=== PATIENT | female | born 1960 | race Caucasian/White ===

== ENCOUNTER 2017-09-19 09:43 | Emergency (ER) | payer OTHER ==
[~2017-09-19] VITALS: Ht 165.1 cm; Wt 99.4 kg
[2017-09-19] MEDS ORDERED: ALBU18HF INH (10:09)
[2017-09-19] MEDS ORDERED: PROP10TA PO (10:09)
[2017-09-19] MEDS ORDERED: MELA3TAB2 PO (10:09)
[2017-09-19] MEDS ORDERED: ZOLP10TA PO (10:09)
[2017-09-19] MEDS ORDERED: ALBUTEROL/IPRATROPIUM 2.5MG/0.5MG, 3 ML NPPB ONE (10:30)
[2017-09-19] MEDS ORDERED: ALBUTEROL/IPRATROPIUM 2.5MG/0.5MG, 3 ML ONE (10:36)
[2017-09-19 11:28] VITALS: BP 145/51
== END 2017-09-19 12:33 | disposition home or self-care (01) ==
LOC: ED 10:29
DX: R06.00 Dyspnea, unspecified (principal); Z87.891 Personal history of nicotine dependence; Z92.21 Personal history of antineoplastic chemotherapy
CPT/HCPCS: 71020; 93005; 94640; 99284; J7620

== ENCOUNTER 2018-01-02 16:37 | Inpatient (IN) | payer OTHER ==
[~2018-01-02] VITALS: Ht 167.6 cm; Wt 93.2 kg
[~2018-01-02 16:37] MED LIST changes: -AMLO1CAP8 PO; -OMNIPAQUE 350 MG/ML, 75ML BOTTLE ONE
[2018-01-02 17:19] LABS: BASOPHILS % (AUTO) 1 % (0-1); EOSINOPHILS # (AUTO) 0.07 x10^3/uL (0-0.4); EOSINOPHILS % (AUTO) 1 % (1-7); LYMPHOCYTES # (AUTO) 2.02 x10^3/uL (1-3.4); LYMPHOCYTES % (AUTO) 25 % (22-44); MD NO; MEAN CORPUSCULAR HEMOGLOBIN 30.6 pg (27.0-34.8); MEAN CORPUSCULAR HGB CONC 33.3 g/dL (32.4-35.8); MEAN CORPUSCULAR VOLUME 91.9 fL (80-100); MEAN PLATELET VOLUME 9.1 fL (7.4-10.4); MONOCYTES # (AUTO) 0.49 x10^3/uL (0.2-0.8); MONOCYTES % (AUTO) 6 % (2-9); NEUTROPHILS # (AUTO) 5.52 x10^3/uL (1.8-6.8); NEUTROPHILS % (AUTO) 67 % (42-75); PLATELET COUNT 248 x10^3/uL (130-400); RED BLOOD COUNT 4.56 x10^6/uL (3.82-5.3)
[2018-01-02 17:32] LABS: ALANINE AMINOTRANSFERASE 58 U/L (12-78); ALBUMIN 3.7 g/dL (3.4-5.0); ANION GAP 5 mmol/L (5-15); CALCIUM 8.9 mg/dL (8.5-10.1); CHLORIDE 107 mmol/L (98-107)
[2018-01-02 17:36] LABS: ALKALINE PHOSPHATASE 124 U/L (45-117); BILIRUBIN,TOTAL 0.3 mg/dL (0.2-1.0); TOTAL PROTEIN 7.9 g/dL (6.4-8.2); TROPONIN I < 0.015 ng/mL (0.000-0.045)
[2018-01-02] MEDS ORDERED: SODIUM CHLORIDE FLUSH 10ML SYR IVF ONE (18:30)
[2018-01-02 18:38] LABS: INTERNATIONAL NORMALIZED RATIO 1.06 (0.93-1.1)
[2018-01-02] MEDS ORDERED: POLYETHYLENE GLYCOL 17 GM PACKET PO PRN (19:30)
[2018-01-02] MEDS ORDERED: ONDANSETRON 2MG/ML, 2ML IVPush PRN (19:30)
[2018-01-02] MEDS ORDERED: BISACODYL 10 MG SUPP PR PRN (19:30)
[2018-01-02] MEDS ORDERED: ACETAMINOPHEN 325 MG TABLET ONE (20:07)
[2018-01-02] MEDS: ACETAMINOPHEN 325 MG TABLET PO PRN (20:10)
[2018-01-02] MEDS ORDERED: AMLO1CAP8 PO (20:50)
[2018-01-02 21:00] VITALS: BP 109/72
[2018-01-02] MEDS ORDERED: PROPRANOLOL 10 MG TABLET PO SCH (21:00)
[2018-01-02 21:03] VITALS: BP 109/72
[2018-01-02] MEDS: ZOLPIDEM 10MG TABLET PO PRN (21:08)
[2018-01-02] MEDS: SODIUM CHLORIDE FLUSH 10ML SYR IVF SCH (21:09)
[2018-01-02] MEDS: MELATONIN 3 MG TABLET PO PRN (22:12)
[2018-01-03 01:59] VITALS: BP 111/70
[2018-01-03 04:37] LABS: BASOPHILS # (AUTO) 0.08 x10^3/uL (0-0.1); BASOPHILS % (AUTO) 1 % (0-1); EOSINOPHILS # (AUTO) 0.09 x10^3/uL (0-0.4); EOSINOPHILS % (AUTO) 1 % (1-7); LYMPHOCYTES # (AUTO) 1.77 x10^3/uL (1-3.4); LYMPHOCYTES % (AUTO) 25 % (22-44); MD NO; MEAN CORPUSCULAR HEMOGLOBIN 29.9 pg (27.0-34.8); MEAN CORPUSCULAR HGB CONC 33.2 g/dL (32.4-35.8); MEAN CORPUSCULAR VOLUME 90.2 fL (80-100); MEAN PLATELET VOLUME 9.3 fL (7.4-10.4); MONOCYTES # (AUTO) 0.52 x10^3/uL (0.2-0.8); MONOCYTES % (AUTO) 8 % (2-9); NEUTROPHILS % (AUTO) 65 % (42-75); PLATELET COUNT 215 x10^3/uL (130-400); RED BLOOD COUNT 4.02 x10^6/uL (3.82-5.3); RED CELL DISTRIBUTION WIDTH 13.9 % (9.6-15.2)
[2018-01-03 05:49] LABS: ALANINE AMINOTRANSFERASE 50 U/L (12-78); ALBUMIN 3.2 g/dL (3.4-5.0); ALKALINE PHOSPHATASE 103 U/L (45-117); ANION GAP 6 mmol/L (5-15); BILIRUBIN,TOTAL 0.6 mg/dL (0.2-1.0); CALCIUM 8.7 mg/dL (8.5-10.1); CHLORIDE 105 mmol/L (98-107); CREATININE 0.62 mg/dL (0.55-1.02); TOTAL PROTEIN 6.5 g/dL (6.4-8.2)
[2018-01-03] MEDS: PROPRANOLOL 10 MG TABLET PO SCH ×2 (07:57→20:36)
[2018-01-03] MEDS: SODIUM CHLORIDE FLUSH 10ML SYR IVF SCH ×2 (07:58→20:36)
[2018-01-03] MEDS: SENNA/DOCUSATE TABLET PO SCH (08:01)
[2018-01-03] MEDS ORDERED: MIDAZOLAM 1 MG/ML, 5ML ONE (08:54)
[2018-01-03] MEDS ORDERED: FLUMAZENIL 0.1 MG/1 ML, 5ML ONE (08:54)
[2018-01-03] MEDS ORDERED: FENTANYL PF 100 MCG/2ML ONE (08:54)
[2018-01-03] MEDS ORDERED: NALOXONE 1 MG/ML, 2ML ONE (08:55)
[2018-01-03 10:45] VITALS: BP 114/52
[2018-01-03] MEDS ORDERED: GADOBUTROL 10 MMOL/10 ML PFS ONE (11:47)
[2018-01-03 12:50] VITALS: BP 124/58
[2018-01-03] MEDS: ACETAMINOPHEN 325 MG TABLET PO PRN (13:13)
[2018-01-03 18:50] VITALS: BP 145/67
[2018-01-03] MEDS: MELATONIN 3 MG TABLET PO PRN (20:39)
[2018-01-03] MEDS: ZOLPIDEM 10MG TABLET PO PRN (20:39)
[2018-01-04 02:10] VITALS: BP 103/62
[2018-01-04] MEDS: SENNA/DOCUSATE TABLET PO SCH (08:13)
[2018-01-04] MEDS: PROPRANOLOL 10 MG TABLET PO SCH ×2 (08:13→20:41)
[2018-01-04] MEDS: SODIUM CHLORIDE FLUSH 10ML SYR IVF SCH ×2 (08:13→20:42)
[2018-01-04 08:26] VITALS: BP 139/83
[2018-01-04] MEDS: LOTREL HOMEMEDPO SCH (10:20)
[2018-01-04] MEDS ORDERED: [UNRECOGNIZED DRUG - REMARK] MC SCH (10:30)
[2018-01-04] MEDS: ENOXAPARIN 100 MG/ML SQ SCH (13:39)
[2018-01-04 14:48] VITALS: BP 116/73
[2018-01-04 20:05] VITALS: BP 145/87
[2018-01-04] MEDS: ZOLPIDEM 10MG TABLET PO PRN (20:41)
[2018-01-04] MEDS: MELATONIN 3 MG TABLET PO PRN (20:41)
[2018-01-05] MEDS: ENOXAPARIN 100 MG/ML SQ SCH ×3 (00:52→23:24)
[2018-01-05 02:45] VITALS: BP 115/74
[2018-01-05 07:30] VITALS: BP 104/65
[2018-01-05] MEDS: LOTREL HOMEMEDPO SCH (08:00)
[2018-01-05] MEDS: PROPRANOLOL 10 MG TABLET PO SCH ×2 (08:29→21:19)
[2018-01-05] MEDS: SODIUM CHLORIDE FLUSH 10ML SYR IVF SCH ×2 (08:29→20:32)
[2018-01-05] MEDS: SENNA/DOCUSATE TABLET PO SCH (08:30)
[2018-01-05 14:14] VITALS: BP 105/66
[2018-01-05 19:38] VITALS: BP 121/73
[2018-01-05] MEDS: ZOLPIDEM 10MG TABLET PO PRN (20:32)
[2018-01-05] MEDS: MELATONIN 3 MG TABLET PO PRN (20:32)
[2018-01-06 01:44] VITALS: BP 104/68
[2018-01-06] MEDS: LOTREL HOMEMEDPO SCH (08:00)
[2018-01-06 08:07] VITALS: BP 123/81
[2018-01-06] MEDS: SENNA/DOCUSATE TABLET PO SCH (09:00)
[2018-01-06] MEDS: ENOXAPARIN 100 MG/ML SQ SCH ×2 (10:47→21:15)
[2018-01-06] MEDS: PROPRANOLOL 10 MG TABLET PO SCH ×2 (10:49→19:57)
[2018-01-06] MEDS: SODIUM CHLORIDE FLUSH 10ML SYR IVF SCH ×2 (10:50→21:11)
[2018-01-06 14:13] VITALS: BP 118/68
[2018-01-06 19:06] VITALS: BP 147/64
[2018-01-06] MEDS: ZOLPIDEM 10MG TABLET PO PRN (21:11)
[2018-01-06] MEDS: MELATONIN 3 MG TABLET PO PRN (21:19)
[2018-01-07 01:17] VITALS: BP 112/52
[2018-01-07 05:05] LABS: CREATININE 0.68 mg/dL (0.55-1.02)
[2018-01-07 07:34] VITALS: BP 133/88
[2018-01-07] MEDS: LOTREL HOMEMEDPO SCH (08:43)
[2018-01-07] MEDS: SODIUM CHLORIDE FLUSH 10ML SYR IVF SCH ×2 (08:43→19:59)
[2018-01-07] MEDS: PROPRANOLOL 10 MG TABLET PO SCH ×2 (08:44→19:58)
[2018-01-07] MEDS: SENNA/DOCUSATE TABLET PO SCH (08:44)
[2018-01-07] MEDS: ENOXAPARIN 100 MG/ML SQ SCH ×2 (10:07→21:06)
[2018-01-07 12:37] VITALS: BP 103/68
[2018-01-07 18:40] VITALS: BP 150/84
[2018-01-07] MEDS: MELATONIN 3 MG TABLET PO PRN (20:32)
[2018-01-07] MEDS: ZOLPIDEM 10MG TABLET PO PRN (20:32)
[2018-01-08 01:24] VITALS: BP 106/71
[2018-01-08 07:42] VITALS: BP 117/74
[2018-01-08] MEDS: SENNA/DOCUSATE TABLET PO SCH (08:12)
[2018-01-08] MEDS: PROPRANOLOL 10 MG TABLET PO SCH (08:13)
[2018-01-08] MEDS: SODIUM CHLORIDE FLUSH 10ML SYR IVF SCH (08:13)
[2018-01-08] MEDS: LOTREL HOMEMEDPO SCH (08:23)
[2018-01-08] MEDS ORDERED: RIVA1TAB PO (09:48)
[2018-01-08] MEDS: ENOXAPARIN 100 MG/ML SQ SCH (10:18)
[2018-01-08] MEDS ORDERED: RIVAROXABAN 10 MG TABLET ONE (10:27)
[2018-01-08] MEDS ORDERED: RIVAROXABAN 15 MG TABLET PO SCH (10:30)
[2018-01-08 10:51] LABS: BASOPHILS # (AUTO) 0.08 x10^3/uL (0-0.1); BASOPHILS % (AUTO) 1 % (0-1); EOSINOPHILS % (AUTO) 2 % (1-7); LYMPHOCYTES # (AUTO) 1.53 x10^3/uL (1-3.4); LYMPHOCYTES % (AUTO) 25 % (22-44); MD NO; MEAN CORPUSCULAR HEMOGLOBIN 30.3 pg (27.0-34.8); MEAN CORPUSCULAR HGB CONC 33.5 g/dL (32.4-35.8); MEAN CORPUSCULAR VOLUME 90.4 fL (80-100); MEAN PLATELET VOLUME 9.7 fL (7.4-10.4); MONOCYTES # (AUTO) 0.49 x10^3/uL (0.2-0.8); MONOCYTES % (AUTO) 8 % (2-9); NEUTROPHILS # (AUTO) 3.91 x10^3/uL (1.8-6.8); NEUTROPHILS % (AUTO) 64 % (42-75); PLATELET COUNT 189 x10^3/uL (130-400); RED BLOOD COUNT 4.46 x10^6/uL (3.82-5.3); RED CELL DISTRIBUTION WIDTH 13.8 % (9.6-15.2)
[2018-01-08] MEDS ORDERED: RIVAROXABAN 15 MG TABLET PO ONE (11:00)
== END 2018-01-08 12:19 | disposition home or self-care (01) | DRG 181 ==
LOC: ED 19:38 → EDIP 19:42 → 3NW 20:52
PROVIDERS: ADMIT Internal Medicine; ATTEND Internal Medicine
PROC: 0BBK3ZX Excision of Right Lung, Percutaneous Approach, Diagnostic (ICD-10-PCS; principal; 2018-01-03)
DX: C34.11 Malignant neoplasm of upper lobe, right bronchus or lung (principal); C79.51 Secondary malignant neoplasm of bone; Z99.81 Dependence on supplemental oxygen; I82.621 Acute embolism and thrombosis of deep veins of right upper extremity; J98.4 Other disorders of lung; E44.1 Mild protein-calorie malnutrition; I82.C11 Acute embolism and thrombosis of right internal jugular vein; F41.9 Anxiety disorder, unspecified; I10 Essential (primary) hypertension; R09.02 Hypoxemia; Z85.118 Personal history of other malignant neoplasm of bronchus and lung; Z92.21 Personal history of antineoplastic chemotherapy; Z87.891 Personal history of nicotine dependence; Z92.3 Personal history of irradiation; Z79.01 Long term (current) use of anticoagulants
CPT/HCPCS: 32405; 36415; 70553; 71045; 77012; 80053; 82565; 83880; 84484; 85025; 85610; 85730; 88305; 88341; 88342; 93005; 99156; 99157; 99285; A9585; C2613; J1650; J2250; J3010; G0461; J2310

== ENCOUNTER → 2018-01-02 | Outpatient (CLI) | payer OTHER ==
[~2018-01-02] MED LIST: ALBU18HF INH; AMLO1CAP8 PO; MELA3TAB2 PO; OMNIPAQUE 350 MG/ML, 75ML BOTTLE ONE; PROP10TA PO; ZOLP10TA PO
== END ==
LOC: RAD 10:06
PROVIDERS: ATTEND Internal Medicine Critical Care Medicine
DX: J98.4 Other disorders of lung (principal); J98.6 Disorders of diaphragm; C34.90 Malignant neoplasm of unspecified part of unspecified bronchus or lung; R53.1 Weakness
CPT/HCPCS: 71260; Q9967

== ENCOUNTER → 2018-01-09 | Outpatient (CLI) | payer OTHER ==
[~2018-01-09] MED LIST changes: +AMLO1CAP8 PO; +RIVA1TAB PO
== END | disposition home or self-care (01) ==
LOC: ROC 01-08 07:19
PROVIDERS: ATTEND Radiology Radiation Oncology
DX: Z08 Encounter for follow-up examination after completed treatment for malignant neoplasm (principal); Z85.118 Personal history of other malignant neoplasm of bronchus and lung
CPT/HCPCS: 77290; 77334; 77470

== ENCOUNTER 2018-01-31 06:21 | Day surgery (SDC) | payer OTHER ==
[~2018-01-31] VITALS: Ht 167.6 cm; Wt 93.5 kg
[2018-01-31 07:11] VITALS: BP 114/78
[2018-01-31] MEDS ORDERED: SODIUM CHLORIDE 0.9% 1,000 ML IV SCH (07:12)
[2018-01-31] MEDS ORDERED: CEFAZOLIN PMX 1GM/50ML 50 ML IV ONE (07:30)
[2018-01-31] MEDS ORDERED: LIDOCAINE-MPF 1%, 5ML ONE ×2 (07:47→09:06)
[2018-01-31] MEDS ORDERED: FENTANYL PF 100 MCG/2ML ONE (08:03)
[2018-01-31] MEDS ORDERED: MIDAZOLAM 1 MG/ML, 5ML ONE (08:03)
[2018-01-31] MEDS ORDERED: NALOXONE 1 MG/ML, 2ML ONE (08:03)
[2018-01-31] MEDS ORDERED: FLUMAZENIL 0.1 MG/1 ML, 5ML ONE (08:03)
== END 2018-01-31 10:40 ==
LOC: OUT 06:21
PROVIDERS: ATTEND Specialist
DX: Z45.2 Encounter for adjustment and management of vascular access device (principal); C34.90 Malignant neoplasm of unspecified part of unspecified bronchus or lung; F41.9 Anxiety disorder, unspecified; I10 Essential (primary) hypertension; Z98.890 Other specified postprocedural states
CPT/HCPCS: 36561; 76937; 77001; 99156; 99157; C1788; C1894; J0690; J1642; J2250; J3010; J7030; J2310

== ENCOUNTER → 2018-04-04 | Outpatient (CLI) | payer OTHER | END | disposition home or self-care (01) | LOC: ROC 07:46 | PROVIDERS: ATTEND Radiology Radiation Oncology | DX: C34.11 Malignant neoplasm of upper lobe, right bronchus or lung (principal) | CPT/HCPCS: 99213; G0463 ==

== ENCOUNTER → 2018-04-05 | Outpatient (CLI) | payer OTHER | LOC: CFH 13:34 | PROVIDERS: ATTEND Specialist | DX: R11.10 Vomiting, unspecified (principal); R06.02 Shortness of breath | CPT/HCPCS: 70551 ==

== ENCOUNTER → 2018-04-15 | Outpatient (CLI) | payer OTHER ==
[~2018-04-15] MED LIST changes: +GADOBUTROL 10 MMOL/10 ML PFS ONE
== END ==
LOC: CFH 08:52
PROVIDERS: ATTEND Radiology Radiation Oncology
DX: C79.51 Secondary malignant neoplasm of bone (principal); C34.11 Malignant neoplasm of upper lobe, right bronchus or lung; I10 Essential (primary) hypertension
CPT/HCPCS: 72157; 72158; A9585

== ENCOUNTER → 2018-06-06 | Outpatient (CLI) | payer OTHER ==
[~2018-06-06] MED LIST changes: -GADOBUTROL 10 MMOL/10 ML PFS ONE
== END | disposition home or self-care (01) ==
LOC: PETCFH 10:37
PROVIDERS: ATTEND Specialist
DX: C79.51 Secondary malignant neoplasm of bone (principal); C34.12 Malignant neoplasm of upper lobe, left bronchus or lung; Z87.891 Personal history of nicotine dependence
CPT/HCPCS: 78306; A9503

== ENCOUNTER 2018-06-14 20:30 | Emergency (ER) | payer OTHER ==
[~2018-06-14] VITALS: Ht 167.6 cm; Wt 87.8 kg
[2018-06-14 20:51] VITALS: BP 133/95
[2018-06-14 22:52] LABS: BASOPHILS # (AUTO) 0.05 x10^3/uL (0-0.1); BASOPHILS % (AUTO) 1 % (0-1); EOSINOPHILS # (AUTO) 0.34 x10^3/uL (0-0.4); EOSINOPHILS % (AUTO) 4 % (1-7); LYMPHOCYTES # (AUTO) 0.68 x10^3/uL (1-3.4); LYMPHOCYTES % (AUTO) 8 % (22-44); MD NO; MEAN CORPUSCULAR HEMOGLOBIN 33.3 pg (27.0-34.8); MEAN CORPUSCULAR HGB CONC 34.4 g/dL (32.4-35.8); MEAN CORPUSCULAR VOLUME 96.6 fL (80-100); MEAN PLATELET VOLUME 7.6 fL (7.4-10.4); MONOCYTES # (AUTO) 0.57 x10^3/uL (0.2-0.8); MONOCYTES % (AUTO) 7 % (2-9); NEUTROPHILS # (AUTO) 6.79 x10^3/uL (1.8-6.8); NEUTROPHILS % (AUTO) 81 % (42-75); PLATELET COUNT 210 x10^3/uL (130-400); RED BLOOD COUNT 3.44 x10^6/uL (3.82-5.3); RED CELL DISTRIBUTION WIDTH 16.2 % (9.6-15.2)
[2018-06-14 23:05] LABS: ALANINE AMINOTRANSFERASE 15 U/L (12-78); ANION GAP 7 mmol/L (5-15); CALCIUM 9.5 mg/dL (8.5-10.1); CHLORIDE 101 mmol/L (98-107); CREATININE 1.18 mg/dL (0.55-1.02)
[2018-06-14 23:07] LABS: ALKALINE PHOSPHATASE 136 U/L (45-117); BILIRUBIN,TOTAL 0.6 mg/dL (0.2-1.0); TOTAL PROTEIN 7.8 g/dL (6.4-8.2)
[2018-06-15 00:36] LABS: TROPONIN I < 0.015 ng/mL (0.000-0.045)
== END 2018-06-15 01:20 | disposition home or self-care (01) ==
LOC: ED 23:02
DX: R06.00 Dyspnea, unspecified (principal); F41.1 Generalized anxiety disorder; I10 Essential (primary) hypertension; J44.9 Chronic obstructive pulmonary disease, unspecified; Z87.891 Personal history of nicotine dependence
CPT/HCPCS: 36415; 71045; 74220; 80053; 83880; 84484; 85025; 93005; 99285

== ENCOUNTER 2018-06-26 18:30 | Inpatient (IN) | payer OTHER ==
[~2018-06-26] VITALS: Ht 167.6 cm; Wt 94.8 kg
[2018-06-26] MEDS ORDERED: ONDANSETRON ODT 4 MG PO ONE (19:00)
[2018-06-26] MEDS ORDERED: HYDROmorphone 1 MG/ML, 1ML IM ONE (19:00)
[2018-06-26] MEDS ORDERED: ONDANSETRON ODT 4 MG ONE (19:06)
[2018-06-26] MEDS ORDERED: HYDROmorphone 2 MG/ML, 1ML ONE ×2 (19:07→21:42)
[2018-06-26 19:22] LABS: BASOPHILS # (AUTO) 0.01 x10^3/uL (0-0.1); BASOPHILS % (AUTO) 0 % (0-1); EOSINOPHILS # (AUTO) 0.16 x10^3/uL (0-0.4); EOSINOPHILS % (AUTO) 2 % (1-7); LYMPHOCYTES # (AUTO) 0.74 x10^3/uL (1-3.4); LYMPHOCYTES % (AUTO) 9 % (22-44); MD NO; MEAN CORPUSCULAR HEMOGLOBIN 32.8 pg (27.0-34.8); MEAN CORPUSCULAR HGB CONC 34.2 g/dL (32.4-35.8); MEAN PLATELET VOLUME 7.6 fL (7.4-10.4); MONOCYTES # (AUTO) 0.67 x10^3/uL (0.2-0.8); MONOCYTES % (AUTO) 8 % (2-9); NEUTROPHILS # (AUTO) 6.44 x10^3/uL (1.8-6.8); NEUTROPHILS % (AUTO) 80 % (42-75); PLATELET COUNT 229 x10^3/uL (130-400); RED BLOOD COUNT 3.61 x10^6/uL (3.82-5.3); RED CELL DISTRIBUTION WIDTH 16.4 % (9.6-15.2)
[2018-06-26 19:28] LABS: ALBUMIN 3.9 g/dL (3.4-5.0); ANION GAP 7 mmol/L (5-15); CALCIUM 9.4 mg/dL (8.5-10.1); CHLORIDE 105 mmol/L (98-107); CREATININE 1.08 mg/dL (0.55-1.02); INTERNATIONAL NORMALIZED RATIO 1.4 (0.93-1.1); PROTHROMBIN TIME 14.5 Seconds (9.6-11.5)
[2018-06-26] MEDS ORDERED: SODIUM CHLORIDE FLUSH 10ML SYR IVF ONE (21:30)
[2018-06-26] MEDS ORDERED: HYDROmorphone 2 MG/ML, 1ML IVPush PRN (21:30)
[2018-06-26] MEDS ORDERED: OPDIVO (21:38)
[2018-06-26 22:31] VITALS: BP 137/79
[2018-06-26] MEDS ORDERED: LEVO75TA5 PO (23:41)
[2018-06-26] MEDS ORDERED: LEVO500T8 PO (23:41)
[2018-06-26] MEDS ORDERED: PRED5TAB19 BC (23:41)
[2018-06-26] MEDS: PROPRANOLOL 10 MG TABLET PO SCH (23:58)
[2018-06-27] MEDS ORDERED: POLYETHYLENE GLYCOL 17 GM PACKET PO PRN
[2018-06-27] MEDS ORDERED: ACETAMINOPHEN 325 MG TABLET PO PRN
[2018-06-27] MEDS ORDERED: BISACODYL 10 MG SUPP PR PRN
[2018-06-27] MEDS ORDERED: MELATONIN 3 MG TABLET PO PRN
[2018-06-27] MEDS ORDERED: ZOLPIDEM 10MG TABLET PO PRN
[2018-06-27] MEDS: SODIUM CHLORIDE 0.9% 1,000 ML IV SCH ×2 (00:07→14:01)
[2018-06-27 02:51] VITALS: BP 118/82
[2018-06-27] MEDS: ALBUTEROL SULFATE 2.5 MG/3 ML NPPB SCH ×3 (03:39→20:20)
[2018-06-27 05:05] LABS: BASOPHILS # (AUTO) 0.02 x10^3/uL (0-0.1); BASOPHILS % (AUTO) 0 % (0-1); EOSINOPHILS # (AUTO) 0.02 x10^3/uL (0-0.4); EOSINOPHILS % (AUTO) 0 % (1-7); LYMPHOCYTES # (AUTO) 0.43 x10^3/uL (1-3.4); LYMPHOCYTES % (AUTO) 5 % (22-44); MD NO; MEAN CORPUSCULAR HGB CONC 34.1 g/dL (32.4-35.8); MEAN CORPUSCULAR VOLUME 96.7 fL (80-100); MEAN PLATELET VOLUME 7.8 fL (7.4-10.4); MONOCYTES # (AUTO) 0.29 x10^3/uL (0.2-0.8); MONOCYTES % (AUTO) 4 % (2-9); NEUTROPHILS # (AUTO) 7.61 x10^3/uL (1.8-6.8); NEUTROPHILS % (AUTO) 91 % (42-75); PLATELET COUNT 196 x10^3/uL (130-400); RED BLOOD COUNT 3.34 x10^6/uL (3.82-5.3); RED CELL DISTRIBUTION WIDTH 16.4 % (9.6-15.2)
[2018-06-27 05:09] LABS: ALANINE AMINOTRANSFERASE 22 U/L (12-78); ALBUMIN 3.6 g/dL (3.4-5.0); ANION GAP 6 mmol/L (5-15); CALCIUM 8.9 mg/dL (8.5-10.1); CHLORIDE 103 mmol/L (98-107); CREATININE 1.02 mg/dL (0.55-1.02)
[2018-06-27 05:11] LABS: ALKALINE PHOSPHATASE 134 U/L (45-117); BILIRUBIN,TOTAL 0.6 mg/dL (0.2-1.0); TOTAL PROTEIN 7.4 g/dL (6.4-8.2)
[2018-06-27] MEDS: LEVOTHYROXINE 75 MCG TABLET PO SCH (05:46)
[2018-06-27] MEDS ORDERED: RIVAROXABAN 20 MG TABLET PO SCH (06:00)
[2018-06-27 08:32] VITALS: BP 103/69
[2018-06-27] MEDS: BENAZEPRIL 10 MG TABLET PO SCH (08:34)
[2018-06-27] MEDS: AMLODIPINE 5 MG TABLET PO SCH (08:34)
[2018-06-27] MEDS: PROPRANOLOL 10 MG TABLET PO SCH ×2 (08:34→21:00)
[2018-06-27] MEDS: ONDANSETRON 2MG/ML, 2ML IVPush PRN ×2 (08:35→15:57)
[2018-06-27] MEDS: RIVAROXABAN 20 MG TABLET PO SCH (08:35)
[2018-06-27] MEDS: SENNA/DOCUSATE TABLET PO SCH (08:37)
[2018-06-27] MEDS: HYDROmorphone 2 MG/ML, 1ML IVPush PRN ×3 (08:53→23:07)
[2018-06-27] MEDS: PROMETHAZINE 25 MG/ML, 1ML IM PRN ×2 (11:19→17:40)
[2018-06-27] MEDS: ALBUTEROL SULFATE 2.5 MG/3 ML NPPB PRN (12:29)
[2018-06-27 13:51] VITALS: BP 115/68
[2018-06-27] MEDS: KETOROLAC 30 MG/1 ML IV PRN ×2 (14:10→21:14)
[2018-06-27 18:41] VITALS: BP 90/51
[2018-06-28] MEDS: ONDANSETRON ODT 4 MG PO PRN ×3 (00:02→17:35)
[2018-06-28] MEDS: SODIUM CHLORIDE 0.9% 1,000 ML IV SCH ×2 (02:10→16:48)
[2018-06-28 02:15] VITALS: BP 104/66
[2018-06-28] MEDS: KETOROLAC 30 MG/1 ML IV PRN ×4 (02:29→20:22)
[2018-06-28] MEDS: RIVAROXABAN 20 MG TABLET PO SCH (06:12)
[2018-06-28] MEDS: LEVOTHYROXINE 75 MCG TABLET PO SCH (06:13)
[2018-06-28] MEDS: HYDROmorphone 2 MG/ML, 1ML IVPush PRN ×4 (06:22→22:38)
[2018-06-28 07:41] VITALS: BP 111/58
[2018-06-28] MEDS: ALBUTEROL SULFATE 2.5 MG/3 ML NPPB SCH ×2 (08:15→18:53)
[2018-06-28] MEDS: BENAZEPRIL 10 MG TABLET PO SCH (08:24)
[2018-06-28] MEDS: SENNA/DOCUSATE TABLET PO SCH (08:24)
[2018-06-28] MEDS: PROPRANOLOL 10 MG TABLET PO SCH ×2 (08:24→21:00)
[2018-06-28] MEDS: AMLODIPINE 5 MG TABLET PO SCH (08:24)
[2018-06-28 14:22] VITALS: BP 131/64
[2018-06-28 20:09] VITALS: BP 109/72
[2018-06-29 01:35] VITALS: BP 97/65
[2018-06-29] MEDS: HYDROmorphone 2 MG/ML, 1ML IVPush PRN ×4 (01:43→22:14)
[2018-06-29] MEDS: ONDANSETRON ODT 4 MG PO PRN ×3 (01:43→15:21)
[2018-06-29] MEDS: RIVAROXABAN 20 MG TABLET PO SCH (05:58)
[2018-06-29] MEDS: KETOROLAC 30 MG/1 ML IV PRN ×3 (05:59→19:34)
[2018-06-29] MEDS: LEVOTHYROXINE 75 MCG TABLET PO SCH (05:59)
[2018-06-29 06:20] LABS: BASOPHILS # (AUTO) 0.05 x10^3/uL (0-0.1); BASOPHILS % (AUTO) 1 % (0-1); EOSINOPHILS # (AUTO) 0.19 x10^3/uL (0-0.4); EOSINOPHILS % (AUTO) 4 % (1-7); LYMPHOCYTES % (AUTO) 8 % (22-44); MD NO; MEAN CORPUSCULAR HEMOGLOBIN 33.6 pg (27.0-34.8); MEAN CORPUSCULAR HGB CONC 34.7 g/dL (32.4-35.8); MEAN PLATELET VOLUME 7.7 fL (7.4-10.4); MONOCYTES # (AUTO) 0.55 x10^3/uL (0.2-0.8); MONOCYTES % (AUTO) 10 % (2-9); NEUTROPHILS # (AUTO) 4.16 x10^3/uL (1.8-6.8); NEUTROPHILS % (AUTO) 78 % (42-75); PLATELET COUNT 166 x10^3/uL (130-400); RED CELL DISTRIBUTION WIDTH 16.6 % (9.6-15.2)
[2018-06-29 06:25] LABS: ANION GAP 9 mmol/L (5-15); CALCIUM 8.6 mg/dL (8.5-10.1); CHLORIDE 108 mmol/L (98-107); CREATININE 0.95 mg/dL (0.55-1.02)
[2018-06-29] MEDS: BENAZEPRIL 10 MG TABLET PO SCH (08:36)
[2018-06-29] MEDS: SODIUM CHLORIDE 0.9% 1,000 ML IV SCH ×2 (08:36→21:59)
[2018-06-29] MEDS: PROPRANOLOL 10 MG TABLET PO SCH ×2 (08:36→22:14)
[2018-06-29] MEDS: AMLODIPINE 5 MG TABLET PO SCH (08:37)
[2018-06-29 09:00] VITALS: BP 111/73
[2018-06-29] MEDS: SENNA/DOCUSATE TABLET PO SCH (09:18)
[2018-06-29] MEDS: ALBUTEROL SULFATE 2.5 MG/3 ML NPPB SCH ×2 (09:30→19:14)
[2018-06-29] MEDS: PROMETHAZINE 25 MG/ML, 1ML IM PRN (12:16)
[2018-06-29 13:24] VITALS: BP 109/67
[2018-06-29 18:53] VITALS: BP 128/81
[2018-06-30 02:40] VITALS: BP_SYST 104; BP_SYST 114; BP_DIAS 76
[2018-06-30] MEDS: KETOROLAC 30 MG/1 ML IV PRN ×3 (03:54→20:19)
[2018-06-30] MEDS: RIVAROXABAN 20 MG TABLET PO SCH (05:39)
[2018-06-30] MEDS: LEVOTHYROXINE 75 MCG TABLET PO SCH (05:39)
[2018-06-30] MEDS: HYDROmorphone 2 MG/ML, 1ML IVPush PRN ×4 (05:40→22:20)
[2018-06-30 07:09] VITALS: BP 113/68
[2018-06-30] MEDS: ALBUTEROL SULFATE 2.5 MG/3 ML NPPB SCH ×2 (09:05→20:45)
[2018-06-30] MEDS: PROPRANOLOL 10 MG TABLET PO SCH ×2 (09:58→20:19)
[2018-06-30] MEDS: AMLODIPINE 5 MG TABLET PO SCH (09:58)
[2018-06-30] MEDS: BENAZEPRIL 10 MG TABLET PO SCH (09:59)
[2018-06-30] MEDS: SENNA/DOCUSATE TABLET PO SCH ×2 (09:59→10:02)
[2018-06-30] MEDS: ACETAMINOPHEN 325 MG TABLET PO SCH ×3 (10:00→21:00)
[2018-06-30] MEDS: SODIUM CHLORIDE 0.9% 1,000 ML IV SCH ×2 (11:29→15:50)
[2018-06-30 15:23] VITALS: BP 126/68
[2018-06-30 15:48] LABS: FREE T4 (FREE THYROXINE) 1.11 ng/dL (0.76-1.46); THYROID STIMULATING HORMONE 58.3 mIU/L (0.358-3.740)
[2018-06-30] MEDS: ONDANSETRON ODT 4 MG PO PRN (17:50)
[2018-06-30 20:08] VITALS: BP 123/64
[2018-07-01] MEDS: HYDROmorphone 2 MG/ML, 1ML IVPush PRN ×3 (02:29→18:06)
[2018-07-01 02:31] VITALS: BP 108/69
[2018-07-01] MEDS: ONDANSETRON ODT 4 MG PO PRN ×3 (02:36→18:15)
[2018-07-01] MEDS: ACETAMINOPHEN 325 MG TABLET PO SCH ×4 (03:00→22:16)
[2018-07-01] MEDS: ALBUTEROL SULFATE 2.5 MG/3 ML NPPB PRN (05:13)
[2018-07-01] MEDS: LEVOTHYROXINE 75 MCG TABLET PO SCH (05:26)
[2018-07-01] MEDS: KETOROLAC 30 MG/1 ML IV PRN ×3 (05:44→22:23)
[2018-07-01 05:52] LABS: BASOPHILS # (AUTO) 0.07 x10^3/uL (0-0.1); BASOPHILS % (AUTO) 1 % (0-1); EOSINOPHILS # (AUTO) 0.27 x10^3/uL (0-0.4); EOSINOPHILS % (AUTO) 4 % (1-7); LYMPHOCYTES # (AUTO) 0.48 x10^3/uL (1-3.4); LYMPHOCYTES % (AUTO) 7 % (22-44); MD NO; MEAN CORPUSCULAR HEMOGLOBIN 33.5 pg (27.0-34.8); MEAN CORPUSCULAR HGB CONC 34.5 g/dL (32.4-35.8); MEAN CORPUSCULAR VOLUME 97.1 fL (80-100); MEAN PLATELET VOLUME 7.5 fL (7.4-10.4); MONOCYTES # (AUTO) 0.52 x10^3/uL (0.2-0.8); MONOCYTES % (AUTO) 7 % (2-9); NEUTROPHILS # (AUTO) 5.81 x10^3/uL (1.8-6.8); NEUTROPHILS % (AUTO) 81 % (42-75); PLATELET COUNT 168 x10^3/uL (130-400); RED BLOOD COUNT 2.69 x10^6/uL (3.82-5.3); RED CELL DISTRIBUTION WIDTH 16.8 % (9.6-15.2)
[2018-07-01] MEDS ORDERED: ALENDRONATE 10 MG TABLET PO SCH (06:30)
[2018-07-01 06:33] LABS: FOLATE LEVEL 9.4 ng/mL (3.1-17.5)
[2018-07-01] MEDS: PROMETHAZINE 25 MG/ML, 1ML IM PRN (07:55)
[2018-07-01 08:07] VITALS: BP 119/69
[2018-07-01] MEDS: ALBUTEROL SULFATE 2.5 MG/3 ML NPPB SCH ×2 (09:00→18:50)
[2018-07-01] MEDS: SODIUM CHLORIDE 0.9% 1,000 ML IV SCH (09:49)
[2018-07-01] MEDS: BENAZEPRIL 10 MG TABLET PO SCH (10:29)
[2018-07-01] MEDS: PROPRANOLOL 10 MG TABLET PO SCH ×2 (10:29→20:10)
[2018-07-01] MEDS: RIVAROXABAN 20 MG TABLET PO SCH (10:30)
[2018-07-01] MEDS: AMLODIPINE 5 MG TABLET PO SCH (10:31)
[2018-07-01 13:52] VITALS: BP 105/65
[2018-07-01 21:00] VITALS: BP 104/62
[2018-07-02] MEDS: HYDROmorphone 2 MG/ML, 1ML IVPush PRN ×4 (00:02→18:31)
[2018-07-02] MEDS: ONDANSETRON ODT 4 MG PO PRN (00:07)
[2018-07-02] MEDS: SODIUM CHLORIDE 0.9% 1,000 ML IV SCH ×2 (00:07→16:04)
[2018-07-02 01:53] VITALS: BP 100/64
[2018-07-02] MEDS: LEVOTHYROXINE 75 MCG TABLET PO SCH (04:43)
[2018-07-02] MEDS: ACETAMINOPHEN 325 MG TABLET PO SCH ×4 (04:43→22:00)
[2018-07-02] MEDS: ONDANSETRON 2MG/ML, 2ML IVPush PRN ×2 (05:10→12:15)
[2018-07-02 07:12] VITALS: BP 117/51
[2018-07-02] MEDS: ALBUTEROL SULFATE 2.5 MG/3 ML NPPB SCH ×2 (07:15→19:22)
[2018-07-02] MEDS: AMLODIPINE 5 MG TABLET PO SCH (09:55)
[2018-07-02] MEDS: PROPRANOLOL 10 MG TABLET PO SCH ×2 (09:56→19:40)
[2018-07-02] MEDS: RIVAROXABAN 20 MG TABLET PO SCH (09:56)
[2018-07-02] MEDS: BENAZEPRIL 10 MG TABLET PO SCH (09:56)
[2018-07-02 14:00] VITALS: BP 117/51
[2018-07-02] MEDS: PROMETHAZINE 25 MG/ML, 1ML IM PRN (19:39)
[2018-07-02 21:27] VITALS: BP 121/68
[2018-07-03] MEDS: HYDROmorphone 2 MG/ML, 1ML IVPush PRN ×4 (00:26→18:14)
[2018-07-03 01:28] VITALS: BP 130/73
[2018-07-03] MEDS: ACETAMINOPHEN 325 MG TABLET PO SCH ×4 (03:52→20:20)
[2018-07-03] MEDS: LEVOTHYROXINE 75 MCG TABLET PO SCH (06:11)
[2018-07-03 07:28] VITALS: BP 120/72
[2018-07-03] MEDS: ALBUTEROL SULFATE 2.5 MG/3 ML NPPB SCH ×2 (07:45→20:26)
[2018-07-03] MEDS: AMLODIPINE 5 MG TABLET PO SCH (08:26)
[2018-07-03] MEDS: BENAZEPRIL 10 MG TABLET PO SCH (08:26)
[2018-07-03] MEDS: PROPRANOLOL 10 MG TABLET PO SCH ×2 (08:26→20:20)
[2018-07-03] MEDS: RIVAROXABAN 20 MG TABLET PO SCH (08:26)
[2018-07-03] MEDS: METOCLOPRAMIDE 10MG TABLET PO SCH ×4 (08:46→20:22)
[2018-07-03 13:29] VITALS: BP 124/83
[2018-07-03] MEDS: ALBUTEROL SULFATE 2.5 MG/3 ML NPPB PRN (16:25)
[2018-07-03] MEDS: ONDANSETRON 2MG/ML, 2ML IVPush PRN (20:20)
[2018-07-03] MEDS: SODIUM CHLORIDE 0.9% 1,000 ML IV SCH (20:23)
[2018-07-03 20:27] VITALS: BP 129/76
[2018-07-04] MEDS: HYDROmorphone 2 MG/ML, 1ML IVPush PRN ×2 (00:05→05:48)
[2018-07-04 02:47] VITALS: BP 131/78
[2018-07-04] MEDS: ONDANSETRON 2MG/ML, 2ML IVPush PRN ×2 (04:08→12:33)
[2018-07-04] MEDS: ACETAMINOPHEN 325 MG TABLET PO SCH ×2 (04:08→10:00)
[2018-07-04] MEDS: LEVOTHYROXINE 75 MCG TABLET PO SCH (05:48)
[2018-07-04] MEDS: BENAZEPRIL 10 MG TABLET PO SCH (07:26)
[2018-07-04] MEDS: PROPRANOLOL 10 MG TABLET PO SCH (07:26)
[2018-07-04] MEDS: RIVAROXABAN 20 MG TABLET PO SCH (07:26)
[2018-07-04] MEDS: AMLODIPINE 5 MG TABLET PO SCH (07:26)
[2018-07-04] MEDS: METOCLOPRAMIDE 10MG TABLET PO SCH ×2 (07:27→11:40)
[2018-07-04 07:45] VITALS: BP 125/47
[2018-07-04] MEDS: ALBUTEROL SULFATE 2.5 MG/3 ML NPPB SCH (09:26)
[2018-07-04] MEDS ORDERED: METO10TA2 PO (09:44)
[2018-07-04] MEDS ORDERED: ONDA4TAB13 PO (09:44)
[2018-07-04] MEDS ORDERED: ACET325T14 PO (09:44)
[2018-07-04] MEDS ORDERED: BISA10SU65 PR (09:44)
[2018-07-04] MEDS ORDERED: OXYC5SOL8 PO (09:48)
[2018-07-04] MEDS ORDERED: OXYcodone 5 MG/5 ML ORAL.SOL UDC PO PRN (10:00)
== END 2018-07-04 13:42 | disposition home or self-care (01) | DRG 543 ==
LOC: ED 19:48 → 3NW 21:42 → 3NE 06-28 05:52 → 3NW 06-28 05:53
PROVIDERS: ADMIT Family Medicine; ATTEND Family Medicine
DX: C79.51 Secondary malignant neoplasm of bone (principal); C34.90 Malignant neoplasm of unspecified part of unspecified bronchus or lung; D68.69 Other thrombophilia; E87.1 Hypo-osmolality and hyponatremia; I82.C11 Acute embolism and thrombosis of right internal jugular vein; D63.8 Anemia in other chronic diseases classified elsewhere; E06.3 Autoimmune thyroiditis; E66.9 Obesity, unspecified; Z68.33 Body mass index [BMI] 33.0-33.9, adult; F41.1 Generalized anxiety disorder; G89.3 Neoplasm related pain (acute) (chronic); I10 Essential (primary) hypertension; J44.9 Chronic obstructive pulmonary disease, unspecified; T45.1X5A Adverse effect of antineoplastic and immunosuppressive drugs, initial encounter; Y92.89 Other specified places as the place of occurrence of the external cause; Z51.5 Encounter for palliative care; Z66 Do not resuscitate; Z79.01 Long term (current) use of anticoagulants; Z80.1 Family history of malignant neoplasm of trachea, bronchus and lung; Z82.49 Family history of ischemic heart disease and other diseases of the circulatory system; Z87.891 Personal history of nicotine dependence; Z92.3 Personal history of irradiation; Z71.3 Dietary counseling and surveillance; Z79.899 Other long term (current) drug therapy
CPT/HCPCS: 36415; 72190; 73552; 99285; J7613; 76536; 77295; 77300; 77334; 77336; 77412; 77417; 80048; 80053; 82040; 82607; 82746; 83540; 83550; 83735; 84439; 84443; 84481; 85025; 85610; 85730; 94640; 96372; 96374; G0378; J1170; J1885; J2405; J2550; Q0162; J7030

== ENCOUNTER → 2018-06-27 | Outpatient (CLI) | payer OTHER ==
[~2018-06-27] MED LIST changes: +ACET325T14 PO; +BISA10SU65 PR; +LEVO500T8 PO; +LEVO75TA5 PO; +METO10TA2 PO; +ONDA4TAB13 PO; +OPDIVO; +OXYC5SOL8 PO; +PRED5TAB19 BC
== END | disposition home or self-care (01) ==
LOC: ROC 10:10
PROVIDERS: ATTEND Radiology Radiation Oncology
DX: Z02.9 Encounter for administrative examinations, unspecified (principal)

== ENCOUNTER → 2018-07-05 | Outpatient (CLI) | payer OTHER | END | disposition home or self-care (01) | LOC: RAD 14:43 | PROVIDERS: ATTEND Specialist | DX: I82.C11 Acute embolism and thrombosis of right internal jugular vein (principal); C34.12 Malignant neoplasm of upper lobe, left bronchus or lung; Z87.891 Personal history of nicotine dependence ==

== ENCOUNTER 2018-07-17 09:05 | Inpatient (IN) | payer OTHER ==
[~2018-07-17] VITALS: Ht 167.6 cm; Wt 87.0 kg
[2018-07-17] MEDS ORDERED: RIVA20TA PO (09:42)
[2018-07-17] MEDS ORDERED: OXYC5TAB3 PO (09:43)
[2018-07-17] MEDS ORDERED: NIVO240V IV (09:46)
[2018-07-17] MEDS ORDERED: SODIUM CHLORIDE FLUSH 10ML SYR IVF ONE (10:00)
[2018-07-17] MEDS ORDERED: SODIUM CHLORIDE 0.9% 1,000ML IVBOLUS ONE (10:00)
[2018-07-17] MEDS ORDERED: METOCLOPRAMIDE 5 MG/ML, 2ML IVPush ONE (10:00)
[2018-07-17] MEDS ORDERED: METOCLOPRAMIDE 5 MG/ML, 2ML ONE (10:05)
[2018-07-17] MEDS ORDERED: MORPHINE SULFATE 4 MG/ML, 1ML ONE ×2 (10:06→13:21)
[2018-07-17] MEDS: MORPHINE SULFATE 4 MG/ML, 1ML IVPush PRN ×4 (10:16→23:38)
[2018-07-17 10:23] LABS: BASOPHILS # (AUTO) 0.03 x10^3/uL (0-0.1); BASOPHILS % (AUTO) 1 % (0-1); EOSINOPHILS # (AUTO) 0.05 x10^3/uL (0-0.4); EOSINOPHILS % (AUTO) 1 % (1-7); LYMPHOCYTES # (AUTO) 0.42 x10^3/uL (1-3.4); LYMPHOCYTES % (AUTO) 6 % (22-44); MD NO; MEAN CORPUSCULAR HEMOGLOBIN 32.7 pg (27.0-34.8); MEAN CORPUSCULAR HGB CONC 33.7 g/dL (32.4-35.8); MEAN CORPUSCULAR VOLUME 97.1 fL (80-100); MEAN PLATELET VOLUME 7.6 fL (7.4-10.4); MONOCYTES # (AUTO) 0.52 x10^3/uL (0.2-0.8); MONOCYTES % (AUTO) 8 % (2-9); NEUTROPHILS # (AUTO) 5.91 x10^3/uL (1.8-6.8); NEUTROPHILS % (AUTO) 85 % (42-75); PLATELET COUNT 236 x10^3/uL (130-400); RED BLOOD COUNT 3.28 x10^6/uL (3.82-5.3); RED CELL DISTRIBUTION WIDTH 17.9 % (9.6-15.2)
[2018-07-17 10:36] LABS: ALANINE AMINOTRANSFERASE 17 U/L (12-78); ALBUMIN 3.7 g/dL (3.4-5.0); ANION GAP 13 mmol/L (5-15); CALCIUM 9.1 mg/dL (8.5-10.1); CHLORIDE 99 mmol/L (98-107)
[2018-07-17 10:39] LABS: ALKALINE PHOSPHATASE 162 U/L (45-117); BILIRUBIN,TOTAL 1.2 mg/dL (0.2-1.0); CREATININE 0.85 mg/dL (0.55-1.02); TOTAL PROTEIN 7.7 g/dL (6.4-8.2)
[2018-07-17 11:49] LABS: MICROSCOPIC INDICATED
[2018-07-17 11:57] LABS: CULTURE INDICATED? NO
[2018-07-17 13:56] VITALS: BP 149/83
[2018-07-17] MEDS ORDERED: LORazepam 2 MG/ML, 1ML IVPush PRN (14:30)
[2018-07-17] MEDS ORDERED: ENALAPRILAT 1.25 MG/ML, 2ML IVPush PRN (14:30)
[2018-07-17] MEDS ORDERED: LORAZEPAM MC SCH (15:00)
[2018-07-17] MEDS ORDERED: ENOXAPARIN 40 MG/0.4 ML SQ SCH (15:00)
[2018-07-17 15:19] LABS: % IRON SATURATION 23 % (20-55); IRON LEVEL 58 mcg/dL (50-170); TOTAL IRON BINDING CAPACITY 248 mcg/dL (250-450)
[2018-07-17] MEDS: ENOXAPARIN 80 MG/0.8 ML SQ SCH (15:22)
[2018-07-17] MEDS: ONDANSETRON 2MG/ML, 2ML IVPush PRN (15:24)
[2018-07-17] MEDS: SODIUM CHLORIDE 0.9% 1,000 ML IV SCH ×2 (15:24→19:23)
[2018-07-17] MEDS ORDERED: POTASSIUM CHLORIDE 40 MEQ in SODIUM CHLORIDE 0.9% 500 ML IV ONE (15:30)
[2018-07-17 15:40] LABS: HEMOGLOBIN A1C 4.2 % (4.2-6.3)
[2018-07-17] MEDS: METOCLOPRAMIDE 5 MG/ML, 2ML IVPush PRN (19:29)
[2018-07-17 19:30] VITALS: BP 126/79
[2018-07-17] MEDS: PANTOPRAZOLE 40 MG IV IVPush SCH (20:51)
[2018-07-17] MEDS: LORazepam 2 MG/ML, 1ML IVPush PRN (23:46)
[2018-07-18] MEDS: ONDANSETRON 2MG/ML, 2ML IVPush PRN ×2 (00:10→07:37)
[2018-07-18 00:14] VITALS: BP 130/84
[2018-07-18] MEDS: SODIUM CHLORIDE 0.9% 1,000 ML IV SCH ×3 (01:58→19:41)
[2018-07-18] MEDS: MORPHINE SULFATE 4 MG/ML, 1ML IVPush PRN ×5 (04:14→23:30)
[2018-07-18] MEDS: ENOXAPARIN 80 MG/0.8 ML SQ SCH (04:15)
[2018-07-18] MEDS: METOCLOPRAMIDE 5 MG/ML, 2ML IVPush PRN ×3 (04:15→19:41)
[2018-07-18 05:03] LABS: ALBUMIN 3.3 g/dL (3.4-5.0); CHLORIDE 109 mmol/L (98-107)
[2018-07-18 05:17] LABS: ALANINE AMINOTRANSFERASE 15 U/L (12-78); ALKALINE PHOSPHATASE 133 U/L (45-117); ANION GAP 12 mmol/L (5-15); BASOPHILS # (AUTO) 0.04 x10^3/uL (0-0.1); BASOPHILS % (AUTO) 1 % (0-1); CREATININE 0.68 mg/dL (0.55-1.02); EOSINOPHILS # (AUTO) 0.06 x10^3/uL (0-0.4); EOSINOPHILS % (AUTO) 1 % (1-7); LYMPHOCYTES # (AUTO) 0.48 x10^3/uL (1-3.4); LYMPHOCYTES % (AUTO) 10 % (22-44); MD NO; MEAN CORPUSCULAR HEMOGLOBIN 32.3 pg (27.0-34.8); MEAN CORPUSCULAR VOLUME 97.9 fL (80-100); MEAN PLATELET VOLUME 7.7 fL (7.4-10.4); MONOCYTES # (AUTO) 0.55 x10^3/uL (0.2-0.8); MONOCYTES % (AUTO) 12 % (2-9); NEUTROPHILS # (AUTO) 3.59 x10^3/uL (1.8-6.8); NEUTROPHILS % (AUTO) 76 % (42-75); PLATELET COUNT 201 x10^3/uL (130-400); RED BLOOD COUNT 2.82 x10^6/uL (3.82-5.3); TOTAL PROTEIN 6.8 g/dL (6.4-8.2)
[2018-07-18 07:18] VITALS: BP 133/84
[2018-07-18] MEDS ORDERED: ONDANSETRON ODT 4 MG ONE ×2 (07:27→11:11)
[2018-07-18] MEDS ORDERED: LEVOTHYROXINE 100 MCG INJ IVPush SCH (09:00)
[2018-07-18] MEDS: PANTOPRAZOLE 40 MG IV IVPush SCH ×2 (09:41→19:41)
[2018-07-18] MEDS ORDERED: MAGNESIUM SULFATE PMX 2GM/50ML 50 ML IV ONE (11:00)
[2018-07-18] MEDS: KETOROLAC 30 MG/1 ML IV PRN (11:23)
[2018-07-18 12:30] LABS: INTERNATIONAL NORMALIZED RATIO 1.4 (0.93-1.1); PROTHROMBIN TIME 14.3 Seconds (9.6-11.5)
[2018-07-18 13:05] VITALS: BP 109/71
[2018-07-18] MEDS: POTASSIUM PHOSPHATE 44 MEQ in SODIUM CHLORIDE 0.9% 500 ML IV SCH ×2 (15:51→22:11)
[2018-07-18 20:17] VITALS: BP 110/56
[2018-07-19 00:30] VITALS: BP 133/80
[2018-07-19] MEDS: MORPHINE SULFATE 4 MG/ML, 1ML IVPush PRN ×3 (03:28→10:49)
[2018-07-19 03:51] LABS: BASOPHILS # (AUTO) 0.04 x10^3/uL (0-0.1); BASOPHILS % (AUTO) 1 % (0-1); EOSINOPHILS # (AUTO) 0.13 x10^3/uL (0-0.4); EOSINOPHILS % (AUTO) 2 % (1-7); LYMPHOCYTES # (AUTO) 0.53 x10^3/uL (1-3.4); LYMPHOCYTES % (AUTO) 10 % (22-44); MD NO; MEAN CORPUSCULAR HEMOGLOBIN 33.2 pg (27.0-34.8); MEAN CORPUSCULAR VOLUME 97.6 fL (80-100); MEAN PLATELET VOLUME 7.4 fL (7.4-10.4); MONOCYTES # (AUTO) 0.55 x10^3/uL (0.2-0.8); MONOCYTES % (AUTO) 11 % (2-9); NEUTROPHILS # (AUTO) 3.96 x10^3/uL (1.8-6.8); NEUTROPHILS % (AUTO) 76 % (42-75); PLATELET COUNT 201 x10^3/uL (130-400); RED BLOOD COUNT 2.77 x10^6/uL (3.82-5.3); RED CELL DISTRIBUTION WIDTH 18.9 % (9.6-15.2)
[2018-07-19 04:00] LABS: ALANINE AMINOTRANSFERASE 18 U/L (12-78); ALBUMIN 3.3 g/dL (3.4-5.0); ANION GAP 13 mmol/L (5-15); CALCIUM 7.9 mg/dL (8.5-10.1); CHLORIDE 106 mmol/L (98-107); CREATININE 0.62 mg/dL (0.55-1.02)
[2018-07-19 04:10] LABS: ALKALINE PHOSPHATASE 133 U/L (45-117); BILIRUBIN,TOTAL 0.9 mg/dL (0.2-1.0); TOTAL PROTEIN 6.8 g/dL (6.4-8.2)
[2018-07-19] MEDS: LEVOTHYROXINE 100 MCG INJ IVPush SCH (05:39)
[2018-07-19 07:00] VITALS: BP 132/83
[2018-07-19] MEDS ORDERED: ONDANSETRON ODT 4 MG ONE ×2 (07:31→12:58)
[2018-07-19] MEDS: SODIUM CHLORIDE 0.9% 1,000 ML IV SCH ×3 (07:35→23:10)
[2018-07-19] MEDS: ONDANSETRON 2MG/ML, 2ML IVPush PRN ×2 (07:36→13:06)
[2018-07-19] MEDS: BISACODYL 10 MG SUPP PR PRN (07:37)
[2018-07-19] MEDS: PANTOPRAZOLE 40 MG IV IVPush SCH ×2 (09:28→20:40)
[2018-07-19] MEDS: METOCLOPRAMIDE 5 MG/ML, 2ML IVPush PRN (10:49)
[2018-07-19 12:50] VITALS: BP 147/83
[2018-07-19] MEDS ORDERED: BUPIVACAINE/PF 0.5% ONE (17:03)
[2018-07-19] MEDS ORDERED: FENTANYL PF 100 MCG/2ML ONE ×3 (17:10→19:11)
[2018-07-19] MEDS ORDERED: MIDAZOLAM 1 MG/ML, 2ML ONE (17:10)
[2018-07-19] MEDS ORDERED: PROPOFOL 10 MG/ML, 20ML ONE (18:02)
[2018-07-19] MEDS ORDERED: SUCCINYLCHOLINE 20 MG/ML, 10ML ONE (18:02)
[2018-07-19] MEDS ORDERED: OXYcodone 5 MG/5 ML ORAL.SOL UDC ONE (19:10)
[2018-07-19] MEDS ORDERED: LORazepam 2 MG/ML, 1ML IVPush PRN ×2 (19:30→20:00)
[2018-07-19] MEDS ORDERED: DIPHENHYDRAMINE 50 MG/ML, 1ML IVPush PRN (19:30)
[2018-07-19] MEDS ORDERED: MEPERIDINE/PF 25MG/0.5ML IVPush PRN (19:30)
[2018-07-19] MEDS ORDERED: PROCHLORPERAZINE 5 MG/ML, 2ML IV PRN ×3 (19:30→20:00)
[2018-07-19] MEDS ORDERED: ALBUTEROL SULFATE 2.5 MG/3 ML NPPB PRN (19:30)
[2018-07-19] MEDS ORDERED: METOPROLOL 1 MG/ML, 5ML IV PRN (19:30)
[2018-07-19] MEDS ORDERED: LABETALOL 5MG/ML, 20ML IV PRN (19:30)
[2018-07-19] MEDS ORDERED: HYDROmorphone 1 MG/ML, 1ML IV PRN (19:30)
[2018-07-19] MEDS ORDERED: OXYcodone 5 MG/5 ML ORAL.SOL UDC PO PRN (19:30)
[2018-07-19] MEDS ORDERED: DIAZEPAM 5 MG/ML, 2ML IVPush PRN (19:30)
[2018-07-19] MEDS ORDERED: hydrALAzine 20 MG/ML, 1ML IV PRN (19:30)
[2018-07-19] MEDS ORDERED: EPHEDRINE 50 MG/ML, 1ML IVPush PRN (19:30)
[2018-07-19] MEDS ORDERED: FENTANYL PF 100 MCG/2ML IV PRN (19:30)
[2018-07-19] MEDS ORDERED: MIDAZOLAM 1 MG/ML, 2ML IV PRN (19:30)
[2018-07-19] MEDS ORDERED: MORPHINE SULFATE 4 MG/ML, 1ML IVPush PRN (19:30)
[2018-07-19] MEDS ORDERED: LORazepam 2 MG/ML, 1ML ONE (19:37)
[2018-07-19 20:56] VITALS: BP 157/88
[2018-07-19] MEDS: KETOROLAC 30 MG/1 ML IV PRN (21:10)
[2018-07-20 01:02] VITALS: BP 115/66
[2018-07-20] MEDS: MORPHINE SULFATE 4 MG/ML, 1ML IVPush PRN ×5 (05:14→22:52)
[2018-07-20] MEDS: LEVOTHYROXINE 100 MCG INJ IVPush SCH (05:14)
[2018-07-20] MEDS: SODIUM CHLORIDE 0.9% 1,000 ML IV SCH ×4 (05:15→22:52)
[2018-07-20 06:25] LABS: BASOPHILS % (AUTO) 0 % (0-1); EOSINOPHILS # (AUTO) 0.07 x10^3/uL (0-0.4); EOSINOPHILS % (AUTO) 1 % (1-7); LYMPHOCYTES # (AUTO) 0.38 x10^3/uL (1-3.4); LYMPHOCYTES % (AUTO) 8 % (22-44); MD NO; MEAN CORPUSCULAR HEMOGLOBIN 33.6 pg (27.0-34.8); MEAN CORPUSCULAR VOLUME 98.9 fL (80-100); MEAN PLATELET VOLUME 7.4 fL (7.4-10.4); MONOCYTES # (AUTO) 0.26 x10^3/uL (0.2-0.8); MONOCYTES % (AUTO) 5 % (2-9); NEUTROPHILS # (AUTO) 4.39 x10^3/uL (1.8-6.8); NEUTROPHILS % (AUTO) 86 % (42-75); PLATELET COUNT 182 x10^3/uL (130-400); RED CELL DISTRIBUTION WIDTH 18.4 % (9.6-15.2)
[2018-07-20 06:32] LABS: ANION GAP 10 mmol/L (5-15); CALCIUM 7.6 mg/dL (8.5-10.1); CHLORIDE 107 mmol/L (98-107); CREATININE 0.51 mg/dL (0.55-1.02)
[2018-07-20 08:10] VITALS: BP 137/84
[2018-07-20] MEDS: PANTOPRAZOLE 40 MG IV IVPush SCH ×2 (08:23→19:30)
[2018-07-20] MEDS: METOCLOPRAMIDE 5 MG/ML, 2ML IVPush PRN ×2 (08:24→16:09)
[2018-07-20] MEDS ORDERED: ONDANSETRON ODT 4 MG ONE (09:53)
[2018-07-20 13:15] VITALS: BP 144/81
[2018-07-20] MEDS: BISACODYL 10 MG SUPP PR PRN (17:48)
[2018-07-20 20:22] VITALS: BP 125/80
[2018-07-20] MEDS: LORazepam 2 MG/ML, 1ML IVPush PRN (21:29)
[2018-07-21] VITALS (9 sets, daily range): BP systolic 121–148; BP diastolic 75–88
[2018-07-21] MEDS: MORPHINE SULFATE 4 MG/ML, 1ML IVPush PRN ×7 (01:58→23:28)
[2018-07-21] MEDS ORDERED: CATHFLO-ALTEPLASE 2 MG/2 ML CATHFLUSH ONE (02:00)
[2018-07-21 05:12] LABS: BASOPHILS # (AUTO) 0.03 x10^3/uL (0-0.1); BASOPHILS % (AUTO) 1 % (0-1); EOSINOPHILS # (AUTO) 0.07 x10^3/uL (0-0.4); EOSINOPHILS % (AUTO) 2 % (1-7); LYMPHOCYTES # (AUTO) 0.42 x10^3/uL (1-3.4); LYMPHOCYTES % (AUTO) 9 % (22-44); MD NO; MEAN CORPUSCULAR HEMOGLOBIN 32.7 pg (27.0-34.8); MEAN CORPUSCULAR HGB CONC 33.5 g/dL (32.4-35.8); MEAN CORPUSCULAR VOLUME 97.6 fL (80-100); MEAN PLATELET VOLUME 7.8 fL (7.4-10.4); MONOCYTES # (AUTO) 0.57 x10^3/uL (0.2-0.8); MONOCYTES % (AUTO) 12 % (2-9); NEUTROPHILS # (AUTO) 3.61 x10^3/uL (1.8-6.8); NEUTROPHILS % (AUTO) 77 % (42-75); PLATELET COUNT 165 x10^3/uL (130-400); RED BLOOD COUNT 2.37 x10^6/uL (3.82-5.3); RED CELL DISTRIBUTION WIDTH 18.4 % (9.6-15.2)
[2018-07-21] MEDS: SODIUM CHLORIDE 0.9% 1,000 ML IV SCH ×3 (05:13→19:41)
[2018-07-21] MEDS: LEVOTHYROXINE 100 MCG INJ IVPush SCH (05:16)
[2018-07-21 05:27] LABS: ALBUMIN 2.8 g/dL (3.4-5.0); ANION GAP 9 mmol/L (5-15); CALCIUM 7.3 mg/dL (8.5-10.1); CHLORIDE 107 mmol/L (98-107)
[2018-07-21 05:32] LABS: ALANINE AMINOTRANSFERASE 17 U/L (12-78); ALKALINE PHOSPHATASE 122 U/L (45-117); BILIRUBIN,TOTAL 0.8 mg/dL (0.2-1.0); CREATININE 0.52 mg/dL (0.55-1.02); TOTAL PROTEIN 5.7 g/dL (6.4-8.2)
[2018-07-21] MEDS: METOCLOPRAMIDE 5 MG/ML, 2ML IVPush PRN ×3 (08:07→22:09)
[2018-07-21] MEDS: PANTOPRAZOLE 40 MG IV IVPush SCH ×2 (08:07→20:20)
[2018-07-21] MEDS: ONDANSETRON 2MG/ML, 2ML IVPush PRN (17:45)
[2018-07-21 17:52] LABS: MEAN CORPUSCULAR HEMOGLOBIN 33.5 pg (27.0-34.8); MEAN CORPUSCULAR HGB CONC 34.5 g/dL (32.4-35.8); MEAN PLATELET VOLUME 7.3 fL (7.4-10.4); PLATELET COUNT 165 x10^3/uL (130-400); RED CELL DISTRIBUTION WIDTH 18.4 % (9.6-15.2)
[2018-07-21 18:23] LABS: BASOPHILS # (AUTO) 0.04 x10^3/uL (0-0.1); BASOPHILS % (AUTO) 1 % (0-1); EOSINOPHILS % (AUTO) 2 % (1-7); LYMPHOCYTES # (AUTO) 0.44 x10^3/uL (1-3.4); LYMPHOCYTES % (AUTO) 9 % (22-44); MD NO; MONOCYTES # (AUTO) 0.57 x10^3/uL (0.2-0.8); MONOCYTES % (AUTO) 11 % (2-9); NEUTROPHILS # (AUTO) 3.97 x10^3/uL (1.8-6.8); NEUTROPHILS % (AUTO) 78 % (42-75)
[2018-07-21] MEDS: LORazepam 2 MG/ML, 1ML IVPush PRN (22:08)
[2018-07-22] MEDS: SODIUM CHLORIDE 0.9% 1,000 ML IV SCH ×3 (02:17→15:01)
[2018-07-22] MEDS: MORPHINE SULFATE 4 MG/ML, 1ML IVPush PRN ×5 (02:36→15:50)
[2018-07-22 02:43] VITALS: BP 147/89
[2018-07-22] MEDS: ONDANSETRON 2MG/ML, 2ML IVPush PRN ×3 (02:51→15:50)
[2018-07-22] MEDS: LEVOTHYROXINE 100 MCG INJ IVPush SCH (05:45)
[2018-07-22 05:46] LABS: BASOPHILS # (AUTO) 0.05 x10^3/uL (0-0.1); BASOPHILS % (AUTO) 1 % (0-1); EOSINOPHILS # (AUTO) 0.11 x10^3/uL (0-0.4); EOSINOPHILS % (AUTO) 2 % (1-7); LYMPHOCYTES # (AUTO) 0.46 x10^3/uL (1-3.4); LYMPHOCYTES % (AUTO) 9 % (22-44); MD NO; MEAN CORPUSCULAR HEMOGLOBIN 33.5 pg (27.0-34.8); MEAN CORPUSCULAR HGB CONC 34.5 g/dL (32.4-35.8); MEAN CORPUSCULAR VOLUME 97.1 fL (80-100); MEAN PLATELET VOLUME 7.6 fL (7.4-10.4); MONOCYTES # (AUTO) 0.69 x10^3/uL (0.2-0.8); MONOCYTES % (AUTO) 14 % (2-9); NEUTROPHILS # (AUTO) 3.65 x10^3/uL (1.8-6.8); NEUTROPHILS % (AUTO) 74 % (42-75); PLATELET COUNT 166 x10^3/uL (130-400); RED BLOOD COUNT 2.77 x10^6/uL (3.82-5.3); RED CELL DISTRIBUTION WIDTH 18.4 % (9.6-15.2)
[2018-07-22 07:01] VITALS: BP 146/87
[2018-07-22] MEDS ORDERED: POTASSIUM CHLORIDE 20 MEQ TAB.ER.PRT PO SCH (08:09)
[2018-07-22] MEDS: PANTOPRAZOLE 40 MG IV IVPush SCH (08:56)
[2018-07-22] MEDS ORDERED: POTASSIUM CHLORIDE 40 MEQ in SODIUM CHLORIDE 0.9% 500 ML IV ONE (09:30)
[2018-07-22 12:21] VITALS: BP 126/84
[2018-07-22] MEDS: METOCLOPRAMIDE 5 MG/ML, 2ML IVPush PRN (12:26)
[2018-07-22] MEDS ORDERED: OMEP-110 PO (14:52)
[2018-07-22 16:34] LABS: ANION GAP 6 mmol/L (5-15); CALCIUM 8.1 mg/dL (8.5-10.1); CHLORIDE 109 mmol/L (98-107)
[2018-07-22 16:35] LABS: CREATININE 0.54 mg/dL (0.55-1.02)
[2018-07-23] MEDS ORDERED: RIVAROXABAN 20 MG TABLET PO SCH (09:00)
== END 2018-07-22 19:15 | disposition home or self-care (01) | DRG 418 ==
LOC: ED 12:13 → EDIP 12:57 → 3NW 13:48
PROVIDERS: ADMIT Internal Medicine; ATTEND Internal Medicine
PROC: 0FT44ZZ Resection of Gallbladder, Percutaneous Endoscopic Approach (ICD-10-PCS; 2018-07-19)
PROC: 30233N1 Transfusion of Nonautologous Red Blood Cells into Peripheral Vein, Percutaneous Approach (ICD-10-PCS; principal; 2018-07-21)
DX: K81.0 Acute cholecystitis (principal); C34.90 Malignant neoplasm of unspecified part of unspecified bronchus or lung; C79.51 Secondary malignant neoplasm of bone; D68.69 Other thrombophilia; I82.C11 Acute embolism and thrombosis of right internal jugular vein; J96.10 Chronic respiratory failure, unspecified whether with hypoxia or hypercapnia; D63.8 Anemia in other chronic diseases classified elsewhere; E06.3 Autoimmune thyroiditis; E83.39 Other disorders of phosphorus metabolism; E87.6 Hypokalemia; F12.20 Cannabis dependence, uncomplicated; J44.9 Chronic obstructive pulmonary disease, unspecified; Z66 Do not resuscitate; F41.9 Anxiety disorder, unspecified; G89.3 Neoplasm related pain (acute) (chronic); I10 Essential (primary) hypertension; Z82.49 Family history of ischemic heart disease and other diseases of the circulatory system; Z80.1 Family history of malignant neoplasm of trachea, bronchus and lung; Z87.891 Personal history of nicotine dependence; Z90.49 Acquired absence of other specified parts of digestive tract; Z91.14 Patient's other noncompliance with medication regimen; Z92.3 Personal history of irradiation; Z99.81 Dependence on supplemental oxygen; Z92.21 Personal history of antineoplastic chemotherapy; Z23 Encounter for immunization
CPT/HCPCS: 36415; 74021; 76700; 78226; 80048; 80053; 81001; 83036; 83540; 83550; 83690; 83735; 84100; 84443; 85025; 85610; 86850; 86900; 86923; 88304; 90656; 93005; 96361; 96374; 96375; 96376; 99285; G0378; J1650; J1885; J2250; J2405; J2704; J2997; J3010; J3480; J3490; A9537; C9113; C9898; J0330; J2060; J2765; J3475; J7030; J7040; P9016

== ENCOUNTER 2018-07-23 17:00 | Emergency (ER) | payer OTHER ==
[~2018-07-23] VITALS: Ht 167.6 cm; Wt 82.6 kg
[~2018-07-23 17:00] MED LIST changes: +NIVO240V IV; +OMEP-110 PO; +OXYC5TAB3 PO; +RIVA20TA PO
[2018-07-23 18:39] LABS: BASOPHILS # (AUTO) 0.01 x10^3/uL (0-0.1); BASOPHILS % (AUTO) 0 % (0-1); EOSINOPHILS # (AUTO) 0.06 x10^3/uL (0-0.4); EOSINOPHILS % (AUTO) 1 % (1-7); LYMPHOCYTES # (AUTO) 0.44 x10^3/uL (1-3.4); LYMPHOCYTES % (AUTO) 7 % (22-44); MD NO; MEAN CORPUSCULAR HEMOGLOBIN 32.2 pg (27.0-34.8); MEAN CORPUSCULAR VOLUME 97.6 fL (80-100); MEAN PLATELET VOLUME 7.6 fL (7.4-10.4); MONOCYTES # (AUTO) 0.33 x10^3/uL (0.2-0.8); MONOCYTES % (AUTO) 6 % (2-9); NEUTROPHILS # (AUTO) 5.06 x10^3/uL (1.8-6.8); NEUTROPHILS % (AUTO) 86 % (42-75); PLATELET COUNT 196 x10^3/uL (130-400); RED CELL DISTRIBUTION WIDTH 19.4 % (9.6-15.2)
[2018-07-23 18:42] LABS: ALBUMIN 3.4 g/dL (3.4-5.0); ANION GAP 8 mmol/L (5-15); CALCIUM 9.2 mg/dL (8.5-10.1); CHLORIDE 103 mmol/L (98-107)
[2018-07-23 18:45] LABS: ALANINE AMINOTRANSFERASE 20 U/L (12-78); ALKALINE PHOSPHATASE 158 U/L (45-117); BILIRUBIN,TOTAL 1.2 mg/dL (0.2-1.0); CREATININE 0.81 mg/dL (0.55-1.02); TOTAL PROTEIN 7.1 g/dL (6.4-8.2)
[2018-07-23] MEDS ORDERED: ONDANSETRON ODT 4 MG ONE (19:58)
[2018-07-23 20:09] LABS: TROPONIN I < 0.015 ng/mL (0.000-0.045)
[2018-07-23] MEDS ORDERED: ONDANSETRON ODT 4 MG PO ONE (20:30)
[2018-07-23] MEDS ORDERED: OMNIPAQUE 350 MG/ML, 100ML BOTTLE ONE (20:39)
[2018-07-23 22:44] VITALS: BP_SYST 128
== END 2018-07-23 22:46 | disposition home or self-care (01) ==
LOC: ED 22:40
DX: R06.00 Dyspnea, unspecified (principal); R60.9 Edema, unspecified; C34.90 Malignant neoplasm of unspecified part of unspecified bronchus or lung; I10 Essential (primary) hypertension; F41.1 Generalized anxiety disorder; J44.9 Chronic obstructive pulmonary disease, unspecified; Z90.49 Acquired absence of other specified parts of digestive tract
CPT/HCPCS: 36415; 71045; 71275; 80053; 83880; 84484; 85025; 93005; 99285; Q0162; Q9967

== ENCOUNTER → 2018-07-25 | Outpatient (CLI) | payer OTHER | END | disposition home or self-care (01) | LOC: EDSTATUS 07-16 15:47 → ROC 07:40 | PROVIDERS: ATTEND Radiology Radiation Oncology | DX: Z02.9 Encounter for administrative examinations, unspecified (principal) ==